=== PATIENT | female | born 1970 | race Asian ===

== ENCOUNTER 2016-04-16 09:45 | Emergency (ER) | payer OTHER ==
[2016-04-16] MEDS ORDERED: ONDANSETRON ODT 4 MG TABLET TL STA (11:40)
[2016-04-16] MEDS ORDERED: MECLIZINE 12.5 MG TABLET PO STA (11:40)
[2016-04-16] MEDS ORDERED: MECLIZINE 12.5 MG TABLET PO ONE (11:50)
[2016-04-16] MEDS ORDERED: ONDANSETRON ODT 4 MG TABLET ONE (11:50)
[2016-04-16] MEDS ORDERED: cefTRIAXone 1 GM VIAL IM STA (13:09)
[2016-04-16] MEDS ORDERED: LIDOCAINE-MPF 1% 5 ML VIAL ONE (13:11)
[2016-04-16] MEDS ORDERED: cefTRIAXone 1 GM VIAL ONE (13:11)
[2016-04-16] MEDS ORDERED: DEXAMETHASONE 10 MG/ML VIAL PO STA (13:19)
[2016-04-16] MEDS ORDERED: DEXAMETHASONE 10 MG/ML VIAL ONE (13:22)
[2016-04-16] MEDS ORDERED: CHERRY SYRUP 10 ML UDC PO ONE (13:22)
== END 2016-04-16 13:44 | disposition home or self-care (01) ==
DX: H83.2X1 Labyrinthine dysfunction, right ear (principal); H61.21 Impacted cerumen, right ear; H66.001 Acute suppurative otitis media without spontaneous rupture of ear drum, right ear
CPT/HCPCS: 69210; 96372; 99283; A9270; Q0162

== ENCOUNTER 2017-12-10 10:00 | Outpatient (CLI) | payer OTHER ==
[2017-12-10 13:57] LABS: BASOPHILS # (AUTO) 0.1 10^3/uL (0.0-0.1); BASOPHILS % (AUTO) 0.9 %; EOSINOPHILS # (AUTO) 0.1 10^3/uL (0.0-0.7); EOSINOPHILS % (AUTO) 1.9 %; HGB - HEMOGLOBIN 13.5 g/dL (12.0-16.0); LYMPHOCYTES # (AUTO) 1.6 10^3/uL (1.5-3.5); LYMPHOCYTES % (AUTO) 25.4 %; MEAN CORPUSCULAR HEMOGLOBIN 30.3 pg (27.0-31.0); MEAN CORPUSCULAR HGB CONC 34.5 g/dL (32.0-36.0); MEAN CORPUSCULAR VOLUME 87.9 fL (81.0-99.0); MEAN PLATELET VOLUME 8.1 fL (7.9-10.8); MONOCYTES # (AUTO) 0.5 10^3/uL (0.0-1.0); MONOCYTES % (AUTO) 7.8 %; PLT - PLATELET COUNT 363 10^3/uL (130-450); RED BLOOD COUNT 4.45 10^6/uL (4.20-5.40); RED CELL DISTRIBUTION WIDTH 13.6 % (12.0-15.0); WHITE BLOOD COUNT 6.2 x10^3/uL (4.8-10.8)
[2017-12-10 14:22] LABS: ALBUMIN 3.9 g/dL (3.2-5.5); ALBUMIN/GLOBULIN RATIO 1.3 (1.0-2.2); ALKALINE PHOSPHATASE 55 IU/L (42-121); ALT ALANINE AMINOTRANSFERASE 18 IU/L (10-60); AST ASPARTATE AMINOTRANSFERASE 23 IU/L (10-42); BILIRUBIN,TOTAL 0.7 mg/dL (0.2-1.0); BUN - BLOOD UREA NITROGEN 13 mg/dL (6-20); CALCIUM 9.3 mg/dL (8.5-10.3); CARBON DIOXIDE - CO2 30 mmol/L (21-32); CHLORIDE 99 mmol/L (101-111); CHOL/HDL RATIO 5.4 (<4.4); CHOLESTEROL 216 mg/dL; CREATININE 0.8 mg/dL (0.4-1.0); GFR - MDRD 77 (>89); GLUCOSE 108 mg/dL (70-100); HDL CHOLESTEROL 40 mg/dL; LDL CHOLESTEROL,CALCULATED 132 mg/dL; LDL/HDL RATIO 3.3 (<4.4); SODIUM 137 mmol/L (135-145); VLDL CHOLESTEROL 44 mg/dL
[2017-12-10 15:10] LABS: HB2 TOTAL 14.2 g/dL; HEMOGLOBIN A1C 0.51 g/dL; HEMOGLOBIN A1C % 5.4 % (4.6-6.2)
== END 2017-12-10 10:01 | disposition home or self-care (01) ==
LOC: LAB.WCP 10:00
PROVIDERS: ATTEND Family Medicine
DX: Z00.00 Encounter for general adult medical examination without abnormal findings (principal); I10 Essential (primary) hypertension
CPT/HCPCS: 36415; 80053; 80061; 83036; 83721; 85025

== ENCOUNTER 2017-12-15 09:43 | Outpatient (CLI) | payer OTHER ==
--- NOTE | 2017-12-16 09:25 | Mammography Report ---
Reason: SCREENING MAMMO Procedure Date: 12/15/2017 Accession Number: [id number] / [id number] Procedure: MGN - Screening Mammo Dig Bilat CPT Code: FULL RESULT: EXAM: Screening Mammo Dig Bilat DATE: 12/15/2017 10:00 AM CLINICAL HISTORY: 47-year-old female with history of late childbearing and history of breast biopsy with benign results TECHNIQUE: Bilateral CC and MLO views were obtained. COMPARISON: This examination represents a new baseline. FINDINGS: The breasts demonstrate heterogeneously dense fibroglandular parenchyma bilaterally. No suspicious masses, clustered microcalcifications, or regions of architectural distortion are identified. IMPRESSION: Negative examination RECOMMENDATION: Routine annual screening unless otherwise clinically indicated. BIRADS CATEGORY 1: Negative STANDARD QUALIFYING STATEMENTS: 1. This examination was reviewed with the aid of Computer-Aided Detection (CAD). 2. A negative or benign imaging report should not delay biopsy if clinically suspicious findings are present. Consider surgical consultation if warrented. More than 5% of cancers are not identified by imaging. 3. Dense breasts may obscure an underlying neoplasm. 4. This examination was reviewed without the aid of 3D breast imaging (tomosynthesis).
== END 2017-12-15 09:44 | disposition home or self-care (01) ==
LOC: DI.N 09:43
DX: Z12.31 Encounter for screening mammogram for malignant neoplasm of breast (principal)
CPT/HCPCS: 77067

== ENCOUNTER 2018-06-09 19:22 | Emergency (ER) | payer OTHER ==
[2018-06-09] MEDS ORDERED: MAG HYDROX/AL HYDROX/SIMETH 30 ML UDC PO STA (19:56)
[2018-06-09] MEDS ORDERED: LIDOCAINE VISCOUS 2% 15 ML UDC MM STA (19:56)
[2018-06-09 19:58] LABS: BASOPHILS # (AUTO) 0.1 10^3/uL (0.0-0.1); BASOPHILS % (AUTO) 0.9 %; EOSINOPHILS # (AUTO) 0.2 10^3/uL (0.0-0.7); EOSINOPHILS % (AUTO) 2.3 %; HGB - HEMOGLOBIN 12.7 g/dL (12.0-16.0); LYMPHOCYTES # (AUTO) 2.1 10^3/uL (1.5-3.5); LYMPHOCYTES % (AUTO) 22.9 %; MEAN CORPUSCULAR HEMOGLOBIN 29.9 pg (27.0-31.0); MEAN CORPUSCULAR HGB CONC 33.9 g/dL (32.0-36.0); MEAN CORPUSCULAR VOLUME 88.3 fL (81.0-99.0); MEAN PLATELET VOLUME 8.1 fL (7.9-10.8); MONOCYTES # (AUTO) 0.6 10^3/uL (0.0-1.0); MONOCYTES % (AUTO) 6.3 %; NEUTROPHILS # (AUTO) 6.3 10^3/uL (1.5-6.6); NEUTROPHILS % (AUTO) 67.6 %; PLT - PLATELET COUNT 335 10^3/uL (130-450); RED BLOOD COUNT 4.23 10^6/uL (4.20-5.40); RED CELL DISTRIBUTION WIDTH 13.6 % (12.0-15.0); WHITE BLOOD COUNT 9.3 x10^3/uL (4.8-10.8)
--- NOTE | 2018-06-09 19:58 | ED Physician Documentation ---
PD HPI CHEST PAIN - Stated complaint Stated Complaint: CHEST PAIN - Chief complaint Chief Complaint: Cardiac - History obtained from History obtained from: Patient - History of Present Illness Timing - onset: Today (48-year-old woman who had sudden central chest burning at 6 PM associated with nausea. Better upright and worse supine. She gets this about every 6 months or so she says. Previous ED work-ups have been negative. When she has it she gets help with a GI cocktail. She says this is typical for 1 of these issues but she is also worried about a heart attack.) Review of Systems Constitutional: denies: Fever, Chills Nose: reports: Reviewed and negative Cardiac: reports: Chest pain / pressure. denies: Palpitations Respiratory: reports: Dyspnea. denies: Cough GI: reports: Nausea. denies: Abdominal Pain, Vomiting PD PAST MEDICAL HISTORY - Past Medical History Past Medical History: Yes GI: GERD - Past Surgical History Past Surgical History: Yes /[employer]: section, Tubal ligation - Present Medications Home Medications: Ambulatory Orders Medication Instructions Recorded Confirmed Azithromycin [Zithromax] 250 mg PO DAILY #6 tablet 04/16/16 Meclizine [Antivert] 25 mg PO Q6H PRN #20 tablet 04/16/16 Omeprazole 20 mg PO DAILY #90 capsule. 06/09/18 - Allergies Allergies/Adverse Reactions: Allergies Allergy/AdvReac Type Severity Reaction Status Date / Time ranitidine HCl * Allergy Mild Itching Verified 06/09/18 19:28 [From Zantac] - Social History Does the pt smoke?: No Smoking Status: Never smoker Does the pt drink ETOH?: Yes Does the pt have substance abuse?: No - Immunizations Immunizations are current?: Yes PD ED PE NORMAL - Vitals Vital signs reviewed: Yes - General General: Alert and oriented X 3, No acute distress - HEENT HEENT: PERRL, EOMI - Neck Neck: Supple, no meningeal sign, No bony TTP - Cardiac Cardiac: RRR, No murmur - Respiratory Respiratory: No respiratory distress, Clear bilaterally - Abdomen Abdomen: Soft, Non tender - Back Back: No CVA TTP, No spinal TTP - Derm Derm: Normal color, Warm and dry - Extremities Extremities: No edema, No calf tenderness / cord - Neuro Neuro: Alert and oriented X 3, Normal speech Results - Vitals Vitals: Vital Signs - 24 hr 04/23/19 04/23/19 04/23/19 19:24 19:47 20:26 Temperature 36.3 C L Heart Rate 79 69 74 Respiratory 16 19 16 Rate Blood Pressure 117/79 119/83 H 104/61 O2 Saturation 96 99 99 Oxygen O2 Source Room air - EKG (time done) 1932 Rate: Rate (enter#) (63) Rhythm: NSR [place]: Normal Intervals: Prolonged NE QRS: Normal Ischemia: Normal ST segments Computer interpretation: Agree with computer - Labs Labs: Laboratory Tests 06/09/18 06/09/18 06/09/18 19:45 19:45 19:45 WBC 9.3 RBC 4.23 Hgb 12.7 Hct 37.4 MCV 88.3 MCH 29.9 MCHC 33.9 RDW 13.6 Plt Count 335 MPV 8.1 Neut # (Auto) 6.3 Lymph # (Auto) 2.1 Ramsey # (Auto) 0.6 Eos # (Auto) 0.2 Baso # (Auto) 0.1 Absolute Nucleated RBC 0.00 Nucleated RBC % 0.1 Sodium 137 Potassium 2.7 L Chloride 96 L Carbon Dioxide 31 Anion Gap 10.0 BUN 16 Creatinine 0.7 Estimated GFR (MDRD) 89 Glucose 111 H Calcium 9.2 Total Bilirubin 0.8 AST 18 ALT 15 Alkaline Phosphatase 56 Troponin I < 0.04 Total Protein 7.2 Albumin 3.9 Globulin 3.3 Albumin/Globulin Ratio 1.2 Lipase 42 06/09/18 21:41 WBC RBC Hgb Hct MCV MCH MCHC RDW Plt Count MPV Neut # (Auto) Lymph # (Auto) Ramsey # (Auto) Eos # (Auto) Baso # (Auto) Absolute Nucleated RBC Nucleated RBC % Sodium Potassium Chloride Carbon Dioxide Anion Gap BUN Creatinine Estimated GFR (MDRD) Glucose Calcium Total Bilirubin AST ALT Alkaline Phosphatase Troponin I < 0.04 Total Protein Albumin Globulin Albumin/Globulin Ratio Lipase PD MEDICAL DECISION MAKING - ED course ED course: 48-year-old woman with recurrent pain, chest pain. Previous negative work-ups. In the past GI cocktails have been helpful. After medications here she was pain-free and serial troponins were done in the department and negative. She has a history of recurrent hypokalemia and this was repleted orally here. Departure - Departure Disposition: 01 Home, Self Care Clinical Impression: Chest pain Qualifiers: Chest pain type: precordial pain Qualified Code(s): R07.2 - Precordial pain Condition: Good Record reviewed to determine appropriate education?: Yes Instructions: ED Chest Pain NonCardiac Follow-Up: Castillo Miner MD [Provider Admit Priv/Credential] - Sundar Dykes MD [Provider Admit Priv/Credential] - Prescriptions: Omeprazole 20 mg PO DAILY #90 capsule. Comments: As discussed based on the pattern this seems like 1 of a couple of things. Could be esophageal spasm, hiatal hernia, or reflux gastritis. Either way the medication should help. Return if worse or new new symptoms happen. Follow-up with 1 of the specialist listed on this form, call tomorrow for an appointment for evaluation for upper endoscopy.
[2018-06-09 20:06] LABS: ALBUMIN 3.9 g/dL (3.2-5.5); ALBUMIN/GLOBULIN RATIO 1.2 (1.0-2.2); BILIRUBIN,TOTAL 0.8 mg/dL (0.2-1.0); CALCIUM 9.2 mg/dL (8.5-10.3); CREATININE 0.7 mg/dL (0.4-1.0); TOTAL PROTEIN 7.2 g/dL (6.7-8.2)
--- NOTE | 2018-06-09 20:28 | XRAY Report ---
Reason: chest pain Procedure Date: 06/09/2018 Accession Number: [id number] / [id number] Procedure: XR - Chest 1 View X-Ray CPT Code: 70632 FULL RESULT: EXAM: CHEST RADIOGRAPHY EXAM DATE: 06/09/2018 08:20 PM. CLINICAL HISTORY: Chest pain. COMPARISON: None. TECHNIQUE: 1 view. FINDINGS: Lungs/Pleura: Mild basilar interstitial prominence. No definite acute infiltrate, consolidation, effusion, or pneumothorax. Mediastinum: Mild cardiomegaly. Upper lobe vessels not distended. Other: None. IMPRESSION: No definite acute disease. RADIA
[2018-06-09] MEDS ORDERED: POTASSIUM BICARB 25 MEQ TABLET PO STA (20:38)
[2018-06-09] MEDS ORDERED: KETOROLAC 30 MG/ML VIAL IVP STA (20:43)
[2018-06-09] MEDS ORDERED: ONDANSETRON 4 MG/2 ML VIAL IVP STA (20:43)
[2018-06-09 22:42] VITALS: BP 105/65
== END 2018-06-09 22:42 | disposition home or self-care (01) ==
LOC: ED 19:22
DX: R07.2 Precordial pain (principal); E87.6 Hypokalemia; I44.0 Atrioventricular block, first degree; K21.9 Gastro-esophageal reflux disease without esophagitis
CPT/HCPCS: 36415; 71045; 80053; 83690; 84484; 85025; 93005; 96374; 99283; 99284; A9270

== ENCOUNTER 2019-01-27 21:58 | Outpatient (CLI) | payer OTHER | END 2019-01-27 21:59 | disposition critical access hospital (66) | LOC: EMS 21:58 | PROVIDERS: ATTEND Surgery | DX: R12 Heartburn (principal); R07.2 Precordial pain | CPT/HCPCS: A0425; A0429 ==

== ENCOUNTER 2019-01-27 22:16 | Emergency (ER) | payer OTHER ==
--- NOTE | 2019-01-27 22:26 | ED Physician Documentation ---
History of Present Illness - Stated complaint Stated Complaint: HEARTBURN - Chief complaint Chief Complaint: Abd Pain - Additonal information Additional information: This is a 48-year-old female with a history of tubal ligation, recurrent hy pokalemia, who presents with epigastric discomfort. Patient states she is had intermittent epigastric discomfort for months, it typically will begin after she eats. She was seen in the emergency department and diagnosed with presumptive gastritis, she has been taking omeprazole for this but she has still had from time to time some pain in her epigastrium which is associated with nausea.Cardiac work up with serial troponins has been negative on past visits. She denies chest pain, or shortness of breath. She has not had vomiting or diarrhea. She has her gallbladder and appendix still. She did have an endoscopy performed recently which reportedly was unremarkable. She does not think an ultrasound of her gallbladder has been done. 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 06/09/18 - Allergies Allergies/Adverse Reactions: Allergies Allergy/AdvReac Type Severity Reaction Status Date / Time ranitidine HCl * Allergy Mild Itching Verified 01/27/19 22:19 [From Zantac] - Social History Does the pt smoke?: No Smoking Status: Never smoker Does the pt drink ETOH?: Yes Does the pt have substance abuse?: No - Immunizations Immunizations are current?: Yes - POLST Patient has POLST: No PD ED PE NORMAL - Vitals Vital signs reviewed: Yes - General General: Alert and oriented X 3, No acute distress - HEENT HEENT: PERRL - Neck Neck: Supple, no meningeal sign - Cardiac Cardiac: RRR, No murmur - Respiratory Respiratory: Clear bilaterally - Abdomen Abdomen: Normal bowel sounds, Soft, Other (Central epigastric tenderness to palpation, no right upper quadrant tenderness, negative Vigil sign. Remainder the abdomen is non-tender. No guarding.) - Derm Derm: Warm and dry - Extremities Extremities: No deformity - Neuro Neuro: Alert and oriented X 3 - Psych Psych: Normal mood, Normal affect Results - Vitals Vitals: Vital Signs - 24 hr 01/27/19 01/28/19 01/28/19 22:15 00:12 01:37 Temperature 36.5 C 36.7 C Heart Rate 64 66 68 Respiratory 16 16 16 Rate Blood Pressure 130/75 125/109 H 109/62 O2 Saturation 98 99 98 Oxygen O2 Source Room air - EKG (time done) 22:33 Other comments: Other comments (Rate 65, rhythm sinus, there is no ST segment elevation. No ST segment depression. Intervals are within normal limits.) - Labs Labs: Laboratory Tests 01/27/19 01/27/19 01/27/19 22:34 22:34 22:34 WBC 12.7 H RBC 4.26 Hgb 12.1 Hct 36.4 L MCV 85.4 MCH 28.4 MCHC 33.2 RDW 13.8 Plt Count 334 MPV 9.7 Neut # (Auto) 10.1 H Lymph # (Auto) 1.7 Petroleum # (Auto) 0.7 Eos # (Auto) 0.2 Baso # (Auto) 0.1 Absolute Nucleated RBC 0.00 Nucleated RBC % 0.0 Sodium 138 Potassium 2.7 L Chloride 100 L Carbon Dioxide 29 Anion Gap 9.0 BUN 12 Creatinine 0.7 Estimated GFR (MDRD) 89 Glucose 128 H Calcium 8.8 Total Bilirubin 0.5 AST 27 ALT 18 Alkaline Phosphatase 66 Troponin I High Sens 10.3 Total Protein 7.2 Albumin 3.9 Globulin 3.3 Albumin/Globulin Ratio 1.2 Lipase 43 Urine Color Urine Clarity Urine pH Ur Specific [place] Urine Protein Urine Glucose (UA) Urine Ketones Urine Occult Blood Urine Nitrite Urine Bilirubin Urine Urobilinogen Ur Leukocyte Esterase Ur Microscopic Review Urine Culture Comments 01/27/19 23:05 WBC RBC Hgb Hct MCV MCH MCHC RDW Plt Count MPV Neut # (Auto) Lymph # (Auto) Petroleum # (Auto) Eos # (Auto) Baso # (Auto) Absolute Nucleated RBC Nucleated RBC % Sodium Potassium Chloride Carbon Dioxide Anion Gap BUN Creatinine Estimated GFR (MDRD) Glucose Calcium Total Bilirubin AST ALT Alkaline Phosphatase Troponin I High Sens Total Protein Albumin Globulin Albumin/Globulin Ratio Lipase Urine Color YELLOW Urine Clarity CLEAR Urine pH 6.0 Ur Specific [place] 1.025 Urine Protein NEGATIVE Urine Glucose (UA) NEGATIVE Urine Ketones NEGATIVE Urine Occult Blood NEGATIVE Urine Nitrite NEGATIVE Urine Bilirubin NEGATIVE Urine Urobilinogen 0.2 (NORMAL) Ur Leukocyte Esterase NEGATIVE Ur Microscopic Review NOT INDICATED Urine Culture Comments NOT INDICATED - Rads (name of study) RUQ US Radiology: Other (There are stones and sludge in the gallbladder, normal wall thickness, no pericholecystic fluid. The common bile duct is dilated to 12 mm, there is no common duct stone identified.) PD MEDICAL DECISION MAKING - ED course Complexity details: considered differential (Gastritis, ACS, pancreatitis, ch olecystitis, biliary colic) ED course: On arrival patient is nontoxic-appearing, vital signs are unremarkable, she has some focal midepigastric tenderness. Labs were drawn, notable for mild leukocytosis which is nonspecific.Patient also has hypokalemia to 2.7, which is similar to past values patient has had. She has a known history of hypokalemia and she has not been taking her potassium supplementation. She was repleted with 60 mEq of potassium here. EKG was obtained and shows no convincing signs of ischemia or dysrhythmia, troponin is negative and ACS is highly unlikely. Patient requested a GI cocktail which was given and she did have improvement in her symptoms. Ultrasound of the right upper quadrant shows sludge and gallstones, also shows a dilated common bile duct. Her labs showed no LFT elevations, normal bilirubin, and on repeat examination patient is symptom-free with no tenderness in her right upper quadrant, no nausea or vomiting. Clinically she does not appear to have cholecystitis. If she does have biliary obstruction, it must be quite acute, given that she has no signs obstruction on her labs. I discussed these results with the patient, and recommended admission for repletion of her potassium as well as further work-up of her dilated common bile duct. Patient declines, stating that she must go home to take care of her kids, and she is feeling well and symptom-free at this time. I explained that she could potentially have a blockage of her common bile duct, and that if she has any recurrence of her symptoms, pain, nausea or vomiting, jaundice, or any other concerning symptoms whatsoever, she really needs to return to the emergency department for further work-up. Even if she continues to feel very well, she is to follow closely with her primary care provider for Repeat labs, recheck of her potassium, further imaging and referral to a general surgeon. I also recommend that she restart her potassium supplementation. Patient agreed to this plan, understands my concerns, and was discharged home per her wishes. Departure - Departure Disposition: Home, Self Care Clinical Impression: Hypokalemia Cholelithiasis Qualifiers: Cholelithiasis location: gallbladder Cholecystitis presence: without cholecystitis Biliary obstruction: without biliary obstruction Qualified Code(s): K80.20 - Calculus of gallbladder without cholecystitis without obstruction Condition: Good Instructions: ED Gallstone W Biliary Colic, ED Diet High Potassium Follow-Up: Radha Crane, [Primary Care Provider] - Within 1 week (For follow up on symptoms and repeat abdominal panel ) Comments: You were seen today for some discomfort in your upper abdomen. Your labs show that your potassium was low at 2.7. This is low enough that typically would keep you in the hospital to replete this, but since you would like to go home, it is very important that you restart your potassium supplements. You should also have your potassium rechecked this week, to ensure it is not dropping lower. If your potassium continues to drop it can cause serious issues such as abnormal heart rhythms. Your ultrasound showed some sludge and stones in your gallbladder, your bile duct was also enlarged. While your labs do not show signs of biliary obstruction, if you are having recurrent or worsening pain, vomiting, fever, yellowing of your skin, or any other concerning symptoms it is very important that you return to the emergency department immediately for recheck. Even if you are feeling completely fine, please follow-up with your primary care provider within the week for a recheck of your abdominal labs along with your potassium. Avoid rich or fatty foods which can make gallbladder pain worse. Discharge Date/Time: 01/28/19 01:38
[2019-01-27 22:40] LABS: BASOPHILS # (AUTO) 0.1 10^3/uL (0.0-0.1); BASOPHILS % (AUTO) 0.4 %; EOSINOPHILS # (AUTO) 0.2 10^3/uL (0.0-0.7); EOSINOPHILS % (AUTO) 1.3 %; HGB - HEMOGLOBIN 12.1 g/dL (12.0-16.0); LYMPHOCYTES # (AUTO) 1.7 10^3/uL (1.5-3.5); LYMPHOCYTES % (AUTO) 13.4 %; MEAN CORPUSCULAR HEMOGLOBIN 28.4 pg (27.0-31.0); MEAN CORPUSCULAR HGB CONC 33.2 g/dL (32.0-36.0); MEAN CORPUSCULAR VOLUME 85.4 fL (81.0-99.0); MEAN PLATELET VOLUME 9.7 fL (7.9-10.8); MONOCYTES # (AUTO) 0.7 10^3/uL (0.0-1.0); MONOCYTES % (AUTO) 5.3 %; NEUTROPHILS # (AUTO) 10.1 10^3/uL (1.5-6.6); NEUTROPHILS % (AUTO) 79.1 %; PLT - PLATELET COUNT 334 10^3/uL (130-450); RED BLOOD COUNT 4.26 10^6/uL (4.20-5.40); RED CELL DISTRIBUTION WIDTH 13.8 % (12.0-15.0); WHITE BLOOD COUNT 12.7 x10^3/uL (4.8-10.8)
[2019-01-27 22:56] LABS: ALBUMIN 3.9 g/dL (3.2-5.5); ALBUMIN/GLOBULIN RATIO 1.2 (1.0-2.2); BILIRUBIN,TOTAL 0.5 mg/dL (0.2-1.0); CALCIUM 8.8 mg/dL (8.5-10.3); CREATININE 0.7 mg/dL (0.4-1.0); TOTAL PROTEIN 7.2 g/dL (6.7-8.2)
[2019-01-27 23:20] LABS: BILIRUBIN,URINE NEGATIVE (NEGATIVE); GLUCOSE, URINE (UA) NEGATIVE (NEGATIVE); KETONES,URINE (UA) NEGATIVE (NEGATIVE); LEUKOCYTE ESTERASE, URINE NEGATIVE (NEGATIVE); NITRITE,URINE NEGATIVE (NEGATIVE); OCCULT BLOOD,URINE NEGATIVE (NEGATIVE); PROTEIN,URINE NEGATIVE (NEGATIVE); UROBILINOGEN,URINE 0.2 (NORMAL) E.U./dL (NORMAL)
[2019-01-27 23:21] LABS: CLARITY,URINE CLEAR (CLEAR)
[2019-01-27] MEDS ORDERED: MAG HYDROX/AL HYDROX/SIMETH 30 ML UDC PO STA (23:35)
--- NOTE | 2019-01-28 00:26 | Ultrasound Report ---
Reason: assess for biliary pathology Procedure Date: 01/27/2019 Accession Number: [id number] / [id number] Procedure: US - Abdomen Limited CPT Code: Final Report FULL RESULT: EXAM: ABDOMEN ULTRASOUND LIMITED, RUQ EXAM DATE: 01/27/2019 11:50 PM. CLINICAL HISTORY: Right upper quadrant pain. COMPARISON: None. TECHNIQUE: Real-time scanning was performed with static images obtained. FINDINGS: Liver: There are 2 cysts in the liver measuring up to 1.5 x 1.2 x 1.2 cm. Mildly echogenic. 16.7 cm. Main portal vein flow: Hepatopetal. Gallbladder: Sludge and stones are seen in the gallbladder. Wall thickness is normal at 1.6 mm but there is tenderness over the gallbladder and cholecystitis is not excluded. Biliary System: CBD measures 12.7 mm. No obvious common duct stone identified, but the distal common duct is obscured by bowel gas. Other: Right kidney measures 9.6 cm. No significant hydronephrosis is seen. Visualized portions of the pancreas appear normal. Inferior vena cava is patent where seen. IMPRESSION: 1. Sludge and stones in the gallbladder. There is normal wall thickness but tenderness is noted over the gallbladder and cholecystitis is not excluded. 2. Dilated common duct measuring up to 12.7 mm. No common duct stone identified, but the distal duct is obscured by bowel gas. 3. Possible fatty liver. RADIA
[2019-01-28] MEDS ORDERED: POTASSIUM CHLORIDE 20 MEQ TABLET PO STA (01:26)
[2019-01-28 01:38] VITALS: BP 109/62
== END 2019-01-28 01:38 | disposition home or self-care (01) ==
LOC: ED 22:16
DX: E87.6 Hypokalemia (principal); K80.20 Calculus of gallbladder without cholecystitis without obstruction; K83.8 Other specified diseases of biliary tract; K21.9 Gastro-esophageal reflux disease without esophagitis
CPT/HCPCS: 36415; 76705; 80053; 81001; 81003; 83690; 84484; 85025; 87086; 93005; 99284

== ENCOUNTER 2019-01-28 09:15 | Emergency (ER) | payer OTHER ==
[2019-01-28 09:40] LABS: BASOPHILS % (AUTO) 0.3 %; EOSINOPHILS % (AUTO) 0.1 %; HGB - HEMOGLOBIN 12.5 g/dL (12.0-16.0); LYMPHOCYTES # (AUTO) 0.8 10^3/uL (1.5-3.5); LYMPHOCYTES % (AUTO) 8.9 %; MEAN CORPUSCULAR HEMOGLOBIN 28.2 pg (27.0-31.0); MEAN CORPUSCULAR HGB CONC 33.2 g/dL (32.0-36.0); MEAN CORPUSCULAR VOLUME 84.9 fL (81.0-99.0); MEAN PLATELET VOLUME 9.7 fL (7.9-10.8); MONOCYTES # (AUTO) 0.6 10^3/uL (0.0-1.0); MONOCYTES % (AUTO) 6.2 %; NEUTROPHILS # (AUTO) 7.5 10^3/uL (1.5-6.6); NEUTROPHILS % (AUTO) 84.2 %; PLT - PLATELET COUNT 370 10^3/uL (130-450); RED BLOOD COUNT 4.44 10^6/uL (4.20-5.40); RED CELL DISTRIBUTION WIDTH 13.7 % (12.0-15.0); WHITE BLOOD COUNT 8.9 x10^3/uL (4.8-10.8)
--- NOTE | 2019-01-28 09:41 | ED Physician Documentation ---
PD HPI ABD PAIN - Stated complaint Stated Complaint: CHEST DISCOMFORT - Chief complaint Chief Complaint: Abd Pain - History obtained from History obtained from: Patient, EMS - History of Present Illness Timing - onset: Yesterday Timing - duration: Days (1) Timing - details: Gradual onset Pain level max: 7 Pain level now: 0 Quality: Aching, Pain Location: Epigastric Radiation: No: Chest, , Lower back, Left flank, Left shoulder, Right flank, Right shoulder, Upper back Improved by: Vomiting Worsened by: Eating Associated symptoms: Nausea, Vomiting (x1). No: Fever, Hematemesis, Diarrhea, Constipation, Melena, Hematochezia, Dysuria, Hematuria, Chest pain, Dizzy, Near syncope / syncope Similar symptoms before: Diagnosis (cholelithiasis, gastritis) Recently seen: Emergency Dept (last night for same) - Additional information Additional information: 48-year-old female presents to the emergency department with epigastric pain. Started after drinking Coke 0 and eating [employer] last night. Was seen here. Her right upper quadrant ultrasound showed a dilated common bile duct, cholelithiasis and sludge without overt cholecystitis. Her symptoms improved and she wanted to go home. This morning she continued to have pain until she vomited x1. After vomiting symptoms have now resolved. She states she feels normal now. Review of Systems Ten Systems: 10 systems reviewed and negative Constitutional: denies: Fever, Chills Ears: denies: Ear pain Nose: denies: Rhinorrhea / runny nose, Congestion Throat: denies: Sore throat Cardiac: denies: Chest pain / pressure, Palpitations Respiratory: denies: Cough Skin: denies: Rash Musculoskeletal: denies: Neck pain, Back pain Neurologic: denies: Headache PD PAST MEDICAL HISTORY - Past Medical History Past Medical History: Yes GI: GERD - Past Surgical History Past Surgical History: Yes /[employer]: section, Tubal ligation - Present Medications Home Medications: Ambulatory Orders Medication Instructions Recorded Confirmed Omeprazole 20 mg PO DAILY #90 capsule. 06/09/18 - Allergies Allergies/Adverse Reactions: Allergies Allergy/AdvReac Type Severity Reaction Status Date / Time ranitidine HCl * Allergy Mild Itching Verified 01/28/19 09:27 [From Zantac] - Social History Does the pt smoke?: No Smoking Status: Never smoker Does the pt drink ETOH?: Yes Does the pt have substance abuse?: No - Immunizations Immunizations are current?: Yes - POLST Patient has POLST: No PD ED PE NORMAL - Vitals Vital signs reviewed: Yes - General General: Alert and oriented X 3, No acute distress - HEENT HEENT: Moist mucous membranes - Neck Neck: Supple, no meningeal sign - Cardiac Cardiac: RRR, Strong equal pulses - Respiratory Respiratory: No respiratory distress, Clear bilaterally - Abdomen Abdomen: Soft, Non tender, Non distended - Derm Derm: Warm and dry - Extremities Extremities: No edema - Neuro Neuro: Alert and oriented X 3 - Psych Psych: Normal mood, Normal affect Results - Vitals Vitals: Vital Signs - 24 hr 01/28/19 01/28/19 01/28/19 09:25 10:09 11:35 Temperature 36.7 C Heart Rate 66 69 73 Respiratory 16 18 18 Rate Blood Pressure 126/90 H 116/73 113/85 H O2 Saturation 98 97 97 01/28/19 01/28/19 01/28/19 12:24 14:22 15:51 Temperature Heart Rate 62 61 64 Respiratory 18 18 18 Rate Blood Pressure 104/75 111/73 114/76 O2 Saturation 98 98 98 01/28/19 01/28/19 17:28 18:10 Temperature Heart Rate 73 68 Respiratory 18 18 Rate Blood Pressure 107/75 O2 Saturation 95 100 Oxygen O2 Source Room air - Labs Labs: Laboratory Tests 01/28/19 01/28/19 09:30 09:30 WBC 8.9 RBC 4.44 Hgb 12.5 Hct 37.7 MCV 84.9 MCH 28.2 MCHC 33.2 RDW 13.7 Plt Count 370 MPV 9.7 Neut # (Auto) 7.5 H Lymph # (Auto) 0.8 L Sullivan # (Auto) 0.6 Eos # (Auto) 0.0 Baso # (Auto) 0.0 Absolute Nucleated RBC 0.00 Nucleated RBC % 0.0 Sodium 139 Potassium 2.8 L Chloride 102 Carbon Dioxide 27 Anion Gap 10.0 BUN 12 Creatinine 0.7 Estimated GFR (MDRD) 89 Glucose 140 H Calcium 8.9 Total Bilirubin 2.0 H AST 290 H ALT 167 H Alkaline Phosphatase 100 Total Protein 7.9 Albumin 4.1 Globulin 3.8 Albumin/Globulin Ratio 1.1 Lipase 37 - Rads (name of study) MRCP Radiology: Prelim report reviewed, EMP read contemporaneously, See rad report (Cholelithiasis and choledocholithiasis with an obstructing stone in the distal common bile duct. ) PD MEDICAL DECISION MAKING - ED course Complexity details: reviewed old records, reviewed results, re-evaluated patient, considered differential, d/w patient, d/w tour consultant ED course: 48-year-old female presents to the emergency department with abdominal pain, seen her last night, diagnosed with cholelithiasis possible choledocholithiasis. Symptoms resolved after vomiting. I discussed the case with Dr. Iglesias, surgery on-call who recommends an MRCP for possible choledocholithiasis. MRCP was obtained and this does show choledocholithiasis with an obstructing stone in the distal common bile duct. We do not have ERCP available here, therefore she will need transfer. 1800 - call to [facility]. no beds available. 1814 - call to [facility] in [place]. Signed out to Dr. Gusman. This document was made in part using voice recognition software. While efforts are made to proofread this document, sound alike and grammatical errors may occur. Departure - Departure Disposition: 02 Transfer Acute Care Hosp Clinical Impression: Hypokalemia, Choledocholithiasis Cholelithiasis Qualifiers: Cholelithiasis location: gallbladder and bile duct Cholecystitis presence: without cholecystitis Biliary obstruction: with biliary obstruction Qualified Code(s): K80.71 - Calculus of gallbladder and bile duct without cholecystitis with obstruction Condition: Stable
[2019-01-28 09:52] LABS: ALBUMIN 4.1 g/dL (3.2-5.5); ALBUMIN/GLOBULIN RATIO 1.1 (1.0-2.2); CALCIUM 8.9 mg/dL (8.5-10.3); CREATININE 0.7 mg/dL (0.4-1.0); TOTAL PROTEIN 7.9 g/dL (6.7-8.2)
[2019-01-28] MEDS ORDERED: SODIUM CHLORIDE 0.9% 1,000 ML IV ONE (17:26)
--- NOTE | 2019-01-28 18:01 | MRI Report ---
Reason: dilated CBD, elevated LFT Procedure Date: 01/28/2019 Accession Number: [id number] / [id number] Procedure: MRI - MRCP W/O CPT Code: Final Report FULL RESULT: EXAM: MR ABDOMEN WITHOUT CONTRAST (MR CHOLANGIOPANCREATOGRAPHY) EXAM DATE: 01/28/2019 05:18 PM. CLINICAL HISTORY: Dilated CBD, elevated LFT. COMPARISON: ABDOMEN LIMITED 01/27/2019 11:10 PM. TECHNIQUE: Multiplanar breath-hold T1 and T2 sequences obtained through the abdomen on an MR scanner. Dedicated 2D and 3D MRCP sequences obtained through the biliary and pancreatic ducts. No intravenous contrast given. FINDINGS: Mild to moderate motion artifact limits most sequences. There are numerous gallstones. Gallbladder slightly distended. No wall thickening or pericholecystic fluid/inflammation evident. Mild dilation of the central and hepatic bile ducts. Dilated cystic duct. Common bile duct dilated to about 10 mm. T2 hypointense filling defect within the distal common bile duct is most consistent with a stone (image 16 series 301, image 75 series 1001). The liver is borderline enlarged. Normal parenchymal signal. There are several small T2 hyperintense lesions measuring up to 13 mm that most likely represent cysts. The spleen is normal. The pancreas is normal. The adrenal glands and kidneys are normal. No free fluid in the visualized portion of the abdomen. Bowel is grossly unremarkable. IMPRESSION: Cholelithiasis and choledocholithiasis with an obstructing stone in the distal common bile duct. RADIA
[2019-01-28] MEDS ORDERED: cefTRIAXone 1 GM in SODIUM CHLORIDE 0.9% MINIBAG 100 ML IV STA ×2 (18:18→21:26)
--- NOTE | 2019-01-28 20:55 | ED Physician Documentation ---
ED Addendum - Addendum Addendum: 01/28/19 20:[address] Barillas, briefly this is a young lady who had some biliary colic and was found to have obstructive choledocholithiasis. She was administered Rocephin. At the time of signout the plan was we are waiting for [facility] to call us back. At 8:45 PM we had not heard from them so we called them, they said they were full, had no beds. 01/28/19 21:00 After discussion with the patient, we called [facility]. They were also full. 01/28/19 21:03 After again discussion with the patient's, we will call [facility]. Pain was starting to come back and 2 mg of morphine IV was ordered. 01/28/19 21:[address] Whitfield at [facility]. He did want her to have a second dose of Rocephin, also further attempts at correcting the potassium. Of note earlier the patient refused oral potassium but I will try to talk her into it. 01/28/19 22:35 I was notified just now, [facility] ([place], [place]) had accepted her, but it sounds like they cannot find the ERCP scope and as such subsequently declined the transfer. 01/28/19 23:[address] Mariano at shift change (2300) to continue to find a bed in a hospital with ERCP.
[2019-01-28] MEDS ORDERED: MORPHINE 2 MG/ML CARPUJECT IVP STA (21:03)
[2019-01-28] MEDS ORDERED: POTASSIUM CHLORIDE 20 MEQ TABLET PO STA (21:26)
--- NOTE | 2019-01-28 23:13 | ED Physician Documentation ---
ED Addendum - Addendum Addendum: Pt care assumed from Dr. Haddad. 48 year old female with choledocolithiasis, who needs transfer to a hospital with ERCP capabilities. I spoke to the [facility] at 11:13, they have no beds available and any of their hospitals at this time. They will call back if bed becomes available. I subsequently spoke to [facility], who had ERCP available and accepted patient fro transfer, Dr. Cooper accepting. I reassessed patient and she was feeling well, hemodynamically stable, and in agreement with transfer. She was subsequently transferred via BLS.
[2019-01-29 01:18] VITALS: BP 108/60
== END 2019-01-29 01:15 | disposition short-term general hospital (02) ==
LOC: ED 09:15
DX: K80.71 Calculus of gallbladder and bile duct without cholecystitis with obstruction (principal); E87.6 Hypokalemia; K21.9 Gastro-esophageal reflux disease without esophagitis
CPT/HCPCS: 36415; 74181; 76705; 80053; 81003; 83690; 84484; 85025; 93005; 96361; 96365; 96366; 96375; 99284; 99285; A9270; 81001; 87086

== ENCOUNTER 2019-01-29 01:16 | Outpatient (CLI) | payer OTHER | END 2019-01-29 01:17 | disposition short-term general hospital (02) | LOC: EMS 01:16 | PROVIDERS: ATTEND Surgery | DX: K82.0 Obstruction of gallbladder (principal) | CPT/HCPCS: A0425; A0428 ==

== ENCOUNTER 2019-04-28 09:25 | Day surgery (SDC) | payer OTHER ==
[2019-04-28] MEDS ORDERED: LACTATED RINGERS 1,000 ML IV ONE (09:29)
[2019-04-28] MEDS ORDERED: fentaNYL 250 MCG/5 ML VIAL IVP ONE (13:44)
[2019-04-28] MEDS ORDERED: MIDAZOLAM 2 MG/2 ML VIAL IVP ONE (13:44)
[2019-04-28 14:50] VITALS: BP 114/83
== END 2019-04-28 09:26 | disposition home or self-care (01) ==
LOC: SDS 09:25
PROVIDERS: ATTEND Surgery
PROC: 0DBP8ZZ Excision of Rectum, Via Natural or Artificial Opening Endoscopic (ICD-10-PCS; principal; 2019-04-28 10:45)
DX: Z12.11 Encounter for screening for malignant neoplasm of colon (principal); D12.8 Benign neoplasm of rectum; K57.30 Diverticulosis of large intestine without perforation or abscess without bleeding; I10 Essential (primary) hypertension; K21.9 Gastro-esophageal reflux disease without esophagitis
CPT/HCPCS: 45380; J3010; J7120